=== PATIENT | female | born 1965 | race Caucasian/White ===

== ENCOUNTER 2017-08-08 14:15 | Observation (INO) | payer OTHER ==
[~2017-08-08] VITALS: Ht 167.6 cm; Wt 70.0 kg
[2017-08-08 14:25] VITALS: BP 123/72; PULSE 72; RESP 18; TEMP 98.2; O2SAT 100
[2017-08-08 14:37] VITALS: RESP 18; O2SAT 99
[2017-08-08] MEDS ORDERED: ASPIRIN 81 MG CHEW TAB PO ONE (14:45)
[2017-08-08] MEDS ORDERED: LIDOCAINE VISCOUS 2% SOLN 15 ML UDC PO ONE (14:45)
[2017-08-08] MEDS ORDERED: ALUMINUM/MAGNESIUM/SIMETH 30 ML CUP PO ONE (14:45)
--- NOTE | 2017-08-08 14:51 | PD ---
HPI Chief Complaint: Chest Pain Time Seen by Provider: 14:31 Travel History International Travel<30 days: No Contact w/Intl Traveler<30days: No Traveled to known affect area: No History of Present Illness HPI Patient comes emergency department complaining of pressure-like pain in her epigastric and substernally. Reports pain began shortly after leaving her daughter's house where she had lunch. Reports that they were on the way take her son back to the [employer] when the pain began suddenly. Patient reports pain has been constant, but has improved some since laying down. Patient reports history of abdominal issues and takes [id number] medications for this. Denies any other medical problems. Denies any history of cardiac disease or ever having a stress test. Patient reports she has had a cholecystectomy. Patient reports associated shortness of breath and tingling in her right arm. Denies anything making symptoms worse. Denies any fevers, loss change in bowel or bladder, headache, neck pain, or back pain. Severity mild. PFSH Past Medical History Anxiety: Yes GERD: Yes Influenza Vaccination: No ?: Not Past Surgical History Abdominal Surgery: Yes (Gall bladder removed july 2016) Social History Alcohol Use: Yes (on occasion) Tobacco Use: No Substance Use: No Allergies-Medications (Allergen,Severity, Reaction): Coded Allergies: No Known Allergies (Unverified , 08/08/17) Review of Systems Except as stated in HPI: all other systems reviewed are Neg Physical Exam Narrative GENERAL: Well-developed, well nourished, in mild acute distress, and non-ill appearing. SKIN: Focused skin assessment warm and dry. HEAD: Atraumatic. Normocephalic. EYES: Pupils equal and round. EOMI. No scleral icterus. No injection or drainage. ENT: No nasal bleeding or discharge. Mucous membranes pink and moist. NECK: Trachea midline. No JVD. Supple. No nuclear rigidity. CARDIOVASCULAR: Regular rate and rhythm. No murmur appreciated. RESPIRATORY: No accessory muscle use. No respiratory distress. Clear to auscultation. Breath sounds equal bilaterally. GASTROINTESTINAL: Abdomen soft, nondistended, and no guarding. Hepatic and splenic margins not palpable. Normal bowel sounds x4. No pulsatile mass. Epigastric tenderness. MUSCULOSKELETAL: No obvious deformities. No clubbing. No cyanosis. No edema. Full range of motion. NEUROLOGICAL: Awake and alert. No obvious cranial nerve deficits. Motor grossly within normal limits. Normal speech. PSYCHIATRIC: Appropriate mood and affect; insight and judgment normal. Data Data Last Documented VS Vital Signs Date Time Temp Pulse Resp B/P (MAP) Pulse Ox O2 Delivery O2 Flow Rate FiO2 08/08/17 15:57 72 18 120/73 (89) 73 Room Air 08/08/17 14:37 2.00 08/08/17 14:25 98.2 Orders Orders Electrocardiogram (08/08/17 14:31) Complete Blood Count With Diff (08/08/17 14:31) Ckmb (Isoenzyme) Profile (08/08/17 14:31) Troponin I (08/08/17 14:31) Chest, Single Ap (08/08/17 14:31) Iv Access Insert/Monitor (08/08/17 14:31) Ecg Monitoring (08/08/17 14:31) Oxygen Administration (08/08/17 14:31) Oximetry (08/08/17 14:31) Aspirin Chew (Aspirin Chew) (08/08/17 14:45) Al-Mag Hy-Si 40-40-4 Mg/Ml Liq (Mag-Al P (08/08/17 14:45) Lidocaine 2% Viscous (Xylocaine 2% Visco (08/08/17 14:45) Prothrombin Time / Inr (Pt) (08/08/17 15:07) Act Partial Throm Time (Ptt) (08/08/17 15:07) Comprehensive Metabolic Panel (08/08/17 14:38) Magnesium (Mg) (08/08/17 14:38) CKMB (08/08/17 14:38) CKMB% (08/08/17 14:38) Lipase (08/08/17 14:38) Ct Abd/Pel W Iv Contrast(Rout) (08/08/17 ) Iohexol 350 Inj (Omnipaque 350 Inj) (08/08/17 17:49) Admit Order (Ed Use Only) (08/08/17 18:07) Activity Bed Rest With Brp (08/08/17 18:07) Vital Signs (Adult) Q4H (08/08/17 18:07) Cardiac Rhythm .As Directed (08/08/17 18:07) Notify Dr: Other .PRN (08/08/17 18:07) Notify Parameters (08/08/17 18:07) Resp Oxygen Nasal Cannula (08/08/17 ) Ckmb (Isoenzyme) Profile (08/08/17 18:07) Ckmb (Isoenzyme) Profile (08/08/17 21:07) Troponin I (08/08/17 18:07) Troponin I (08/08/17 21:07) Electrocardiogram (08/08/17 18:07) Electrocardiogram (08/08/17 21:07) ^ Obtain (08/08/17 18:07) Sodium Chloride 0.9% Flush (Ns Flush) (08/08/17 18:15) Sodium Chloride 0.9% Flush (Ns Flush) (08/08/17 21:00) Supervisor Color Making / Telemetry EVANGELINA.Q8H (08/08/17 18:07) Labs Laboratory Tests Test 08/08/17 14:38 08/08/17 15:15 White Blood Count 4.9 TH/MM3 Red Blood Count 4.35 MIL/MM3 Hemoglobin 13.8 GM/DL Hematocrit 39.6 % Mean Corpuscular Volume 91.0 FL Mean Corpuscular Hemoglobin 31.7 PG Mean Corpuscular Hemoglobin Concent 34.8 % Red Cell Distribution Width 12.8 % Platelet Count 210 TH/MM3 Mean Platelet Volume 9.6 FL Neutrophils (%) (Auto) 42.2 % Lymphocytes (%) (Auto) 46.2 % Monocytes (%) (Auto) 9.7 % Eosinophils (%) (Auto) 1.4 % Basophils (%) (Auto) 0.5 % Neutrophils # (Auto) 2.1 TH/MM3 Lymphocytes # (Auto) 2.3 TH/MM3 Monocytes # (Auto) 0.5 TH/MM3 Eosinophils # (Auto) 0.1 TH/MM3 Basophils # (Auto) 0.0 TH/MM3 CBC Comment DIFF FINAL Differential Comment Blood Urea Nitrogen 14 MG/DL Creatinine 0.83 MG/DL Random Glucose 61 MG/DL Total Protein 7.5 GM/DL Albumin 3.6 GM/DL Calcium Level 8.5 MG/DL Magnesium Level 2.4 MG/DL Alkaline Phosphatase 50 U/L Aspartate Amino Transf (AST/SGOT) 138 U/L Alanine Aminotransferase (ALT/SGPT) 73 U/L Total Bilirubin 0.2 MG/DL Sodium Level 142 MEQ/L Potassium Level 4.1 MEQ/L Chloride Level 109 MEQ/L Carbon Dioxide Level 25.8 MEQ/L Anion Gap 7 MEQ/L Estimat Glomerular Filtration Rate 73 ML/MIN Total Creatine Kinase 331 U/L Creatine Kinase MB 8.2 NG/ML Creatine Kinase MB % 2.5 % Troponin I LESS THAN 0.02 NG/ML Lipase 124 U/L Prothrombin Time 10.2 SEC Prothromb Time International Ratio 1.0 RATIO Activated Partial Thromboplast Time 24.0 SEC MDM Medical Decision Making Medical Screen Exam Complete: Yes Emergency Medical Condition: Yes Interpretation(s) EKG reviewed by Dr. Wharton shows sinus rhythm with first-degree AV block with a ventricular rate of 73. No STEMI. Last Impressions Chest X-Ray 08/08/17 1431 Signed Impressions: Service Date/Time: Tuesday, August 08, 2017 15:10 - CONCLUSION: No acute disease. Lukasz Rodriguez MD Abdomen/Pelvis CT 08/08/17 0000 Signed Impressions: Service Date/Time: Tuesday, August 08, 2017 17:38 - CONCLUSION: No acute disease. Lukasz Rodriguez MD Differential Diagnosis Acute coronary syndrome, atypical chest pain, gastritis, pancreatitis, metabolic disturbance, pneumonia Narrative Course Patient was seen and examined. Initial laboratory radiological studies were ordered. Patient was given aspirin as well as a GI cocktail. IV was established patient was placed on continuous cardiac monitoring. Discussed patient with Dr. Wharton, who saw and evaluated the patient and recommends admission to the chest pain center if CT is negative. Discussed all findings and plan of care patient, who is agreeable for admission. All questions were answered. Patient remained stable throughout ED course. Diagnosis Primary Impression: Atypical chest pain Admitting Information Admitting Physician Requests: Observation Condition: Stable Hardy Esposito Aug 08, 2017 14:51
[2017-08-08 15:12] LABS: AUTOMATED NEUTROPHIL # 2.1 TH/MM3 (1.8-7.7); BASOPHIL % 0.5 % (0.0-2.0); EOSINOPHIL # 0.1 TH/MM3 (0-0.4); EOSINOPHIL % 1.4 % (0.0-4.0); HEMATOCRIT 39.6 % (35.0-46.0); HEMOGLOBIN 13.8 GM/DL (11.6-15.3); LYMPH % 46.2 % (9.0-44.0); LYMPHOCYTE # 2.3 TH/MM3 (1.0-4.8); MEAN CORPUSCULAR HEMOGLOBIN 31.7 PG (27.0-34.0); MEAN CORPUSCULAR HGB CONC 34.8 % (32.0-36.0); MEAN PLATELET VOLUME 9.6 FL (7.0-11.0); MONO % 9.7 % (0.0-8.0); MONOCYTE # 0.5 TH/MM3 (0-0.9); NEUT % 42.2 % (16.0-70.0); PLATELET COUNT 210 TH/MM3 (150-450); RED BLOOD COUNT 4.35 MIL/MM3 (4.00-5.30); RED CELL DISTRIBUTION WIDTH 12.8 % (11.6-17.2); WHITE BLOOD COUNT 4.9 TH/MM3 (4.0-11.0)
[2017-08-08 15:32] LABS: ALBUMIN 3.6 GM/DL (3.4-5.0); ALT (GPT) 73 U/L (10-53); AST (GOT) 138 U/L (15-37); BICARBONATE 25.8 MEQ/L (21.0-32.0); BLOOD UREA NITROGEN 14 MG/DL (7-18); CALCIUM 8.5 MG/DL (8.5-10.1); CHLORIDE 109 MEQ/L (98-107); CREATININE 0.83 MG/DL (0.50-1.00); GLOMERULAR FILTRATION RATE 73 ML/MIN (>89); GLUCOSE,RANDOM 61 MG/DL (74-106); MAGNESIUM 2.4 MG/DL (1.5-2.5); SODIUM (NA) 142 MEQ/L (136-145)
[2017-08-08 15:36] LABS: ALKALINE PHOSPHATASE 50 U/L (45-117); TOTAL BILIRUBIN ADULT 0.2 MG/DL (0.2-1.0); TOTAL PROTEIN 7.5 GM/DL (6.4-8.2); TROPONIN I LESS THAN 0.02 NG/ML (0.02-0.05)
--- NOTE | 2017-08-08 15:51 | RADRPT ---
EXAM DATE/TIME: 08/08/2017 15:10 [facility] COMPARISON: No previous studies available for comparison. INDICATIONS : Chest Presssure MEDICAL HISTORY : None. SURGICAL HISTORY : None. ENCOUNTER: Initial ACUITY: 1 day PAIN SCORE: 0/10 LOCATION: chest FINDINGS: A single view of the chest demonstrates the lungs to be symmetrically aerated without evidence of mas s, infiltrate or effusion. The cardiomediastinal contours are unremarkable. Osseous structures are intact. CONCLUSION: No acute disease. Lukasz Rodriguez MD on August 08, 2017 at 15:49 Board Certified Radiologist. This report was verified electronically.
[2017-08-08 15:57] VITALS: BP 120/73; PULSE 72; RESP 18; O2SAT 73
[2017-08-08 16:03] LABS: PROTHROMBIN TIME - PATIENT 10.2 SEC (9.8-11.6)
[2017-08-08] MEDS ORDERED: IOHEXOL 350 MG/ML 10 ML VIAL (for RAD DIAG) IVCONTRAST ONE (17:49)
--- NOTE | 2017-08-08 18:05 | RADRPT ---
EXAM DATE/TIME: 08/08/2017 17:38 [facility] COMPARISON: No previous studies available for comparison. INDICATIONS : Epigastric pain IV CONTRAST: 95 cc Omnipaque 350 (iohexol) IV ORAL CONTRAST: No oral contrast ingested. RADIATION DOSE: 8.53 CTDIvol (mGy) MEDICAL HISTORY : None SURGICAL HISTORY : Cholecystectomy. ENCOUNTER: Initial ACUITY: 2 days PAIN SCALE: 7/10 LOCATION: upper quadrant TECHNIQUE: Volumetric scanning of the abdomen and pelvis was performed. Using automated exposure control and ad justment of the mA and/or kV according to patient size, radiation dose was kept as low as reasonably achievable to obtain optimal diagnostic quality images. DICOM format image data is available electro nically for review and comparison. FINDINGS: LOWER LUNGS: The visualized lower lungs are clear. LIVER: Homogeneous density without lesion. There is no dilation of the biliary tree. Post cholecystectomy c lips are noted. SPLEEN: Normal size without lesion. PANCREAS: Within normal limits. KIDNEYS: Normal in size and shape. There is no mass, stone or hydronephrosis. ADRENAL GLANDS: Within normal limits. VASCULAR: There is no aortic aneurysm. BOWEL/MESENTERY: The stomach, small bowel, and colon demonstrate no acute abnormality. There is no free intraperitone al air or fluid. ABDOMINAL WALL: Within normal limits. RETROPERITONEUM: There is no lymphadenopathy. BLADDER: No wall thickening or mass. REPRODUCTIVE: Within normal limits. INGUINAL: There is no lymphadenopathy or hernia. MUSCULOSKELETAL: Within normal limits for patient age. CONCLUSION: No acute disease. Lukasz Rodriguez MD on August 08, 2017 at 18:01 Board Certified Radiologist. This report was verified electronically.
[2017-08-08] MEDS ORDERED: SODIUM CHLORIDE 0.9% FLUSH 10 ML FLUSH IV FLUSH PRN (18:15)
[2017-08-08 19:05] LABS: TROPONIN I LESS THAN 0.02 NG/ML (0.02-0.05)
[2017-08-08 19:29] VITALS: O2SAT 98
[2017-08-08 20:00] VITALS: BP 116/71; PULSE 62; RESP 18; TEMP 97.7; O2SAT 98
[2017-08-08] MEDS: SODIUM CHLORIDE 0.9% FLUSH 10 ML FLUSH IV FLUSH SCH (21:00)
[2017-08-08 22:22] LABS: TROPONIN I LESS THAN 0.02 NG/ML (0.02-0.05)
[2017-08-08] MEDS ORDERED: ONDANSETRON HCL 4 MG/2 ML VIAL IV PUSH PRN (23:30)
[2017-08-08] MEDS ORDERED: ACETAMINOPHEN 500 MG CPLT PO PRN (23:30)
[2017-08-09] VITALS: BP 110/78; PULSE 51; RESP 18; TEMP 98.1; O2SAT 98
[2017-08-09 00:56] VITALS: PULSE 56
[2017-08-09 04:00] VITALS: BP 108/63; PULSE 61; RESP 18; TEMP 98; O2SAT 98
[2017-08-09 04:16] VITALS: PULSE 56
[2017-08-09 08:26] VITALS: BP 115/68; PULSE 60; RESP 16; TEMP 97.9; O2SAT 98
[2017-08-09] MEDS ORDERED: ALUMINUM/MAGNESIUM/SIMETH 30 ML CUP PO ONE (08:30)
--- NOTE | 2017-08-09 09:09 | HHI.HP ---
HPI Primary Care Physician Unknown Chief Complaint Abdominal pain History of Present Illness This is a 51-year-old female with history of GERD presents to ED complaining of abdominal pain. Patient states "I think everyone is barking down the wrong tree." States he began having a pressure and points to the epigastric region. 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 Was about an hour to 2 hours after having a branch which included scrambled eggs, clark, sausage, cinnamon rolls, and mimosas. The discomfort was very intense and lasted about 20 minutes. She was little nauseous. She was burping and belching. She has had this quite a bit in the past but this is more intense than usual. States she has placed herself on Prilosec OTC and has been taking this for about a week and a half. Denies other type of discomforts. Denies chest pain. Denies fevers or chills. Denies any recent coughing or illnesses. She is found nothing to worsen or improve the symptoms when she had it. Review of Systems General: Patient denies fevers, chills recent, and recent travel HEENT: Patient denies headache, sore throat, difficulty swallowing. Cardiovascular: Complains of an epigastric discomfort as mentioned above. Denies sensation of heart beating rapidly or irregularly. No syncope. Denies diaphoresis. Respiratory: Denies shortness of breath or inspirational chest discomfort. Denies coughing wheezing or hemoptysis. GI: She was nauseous. Complains of an epigastric discomfort. She was burping and belching. Patient denies vomiting, constipation, diarrhea, and bloody stools. Musculoskeletal: Patient denies joint pain or edema. Denies calf pain or edema. Neurovascular: Patient denies numbness, tingling, weakness in extremities. Denies headache. Endocrine: Denies polyuria and polydipsia. Hematologic: Denies easy bruising. Skin: Denies rash or itching. Past Family Social History Allergies: Coded Allergies: No Known Allergies (Unverified , 08/08/17) Past Medical History GERD. Israel's. Denies hypertension, hyperlipidemia, diabetes, and CAD. Past Surgical History Cholecystectomy July 2016. Active Ordered Medications Current Medications Medications (Trade) Dose Ordered Sig/Danay Route Start Time Stop Time Status Last Admin (NS Flush) 2 ml UNSCH PRN IV FLUSH 4/1/18 18:15 (NS Flush) 2 ml BID IV FLUSH 08/08/17 21:00 08/08/17 21:00 (Tylenol) 500 mg Q4H PRN PO 08/08/17 23:30 (Zofran Inj) 4 mg Q6H PRN IV PUSH 08/08/17 23:30 Family History Denies family history of CAD. Social History Non-smoker. Occasional alcohol. Denies illicit drug use. Physical Exam Vital Signs Vital Signs Date Time Temp Pulse Resp B/P (MAP) Pulse Ox O2 Delivery O2 Flow Rate FiO2 08/09/17 08:26 97.9 60 16 115/68 (84) 98 08/09/17 04:16 56 08/09/17 04:00 98.0 61 18 108/63 (78) 98 08/09/17 00:56 56 08/09/17 00:00 98.1 51 18 110/78 (89) 98 08/08/17 20:00 97.7 62 18 116/71 (86) 98 08/08/17 19:29 98 08/08/17 15:57 72 18 120/73 (89) 73 Room Air 08/08/17 14:37 99 Nasal Cannula 2.00 08/08/17 14:37 18 99 Room Air 08/08/17 14:33 71 18 99 Room Air 08/08/17 14:25 98.2 72 18 123/72 (89) 100 Nasal Cannula 2.00 Physical Exam GENERAL: This is a well-nourished, well-developed patient, in no apparent distress. Patient speaks in clear complete sentences. Patient is pleasant. HEENT: Head is atraumatic and normocephalic. Neck is supple without lymphadenopathy and trachea is midline. No JVD or carotid bruits. CARDIOVASCULAR: Regular rate and rhythm without murmurs, gallops, or rubs. RESPIRATORY: Clear to auscultation. Breath sounds equal bilaterally. No wheezes , rales, or rhonchi. Chest wall is nontender. No use of accessory muscles. GASTROINTESTINAL: There is some epigastric tenderness. Abdomen is nondistended. Abdomen soft. No obvious pulsatile mass or bruit. No CVA tenderness. Strong femoral pulses bilaterally. Normal bowel sounds in all quadrants. MUSCULOSKELETAL: Patient is moving upper and lower extremities freely. No calf tenderness or edema, no Homans sign. Strong pulses in upper and lower extremities. NEUROLOGICAL: Patient is alert and oriented. Cranial nerves 2-12 are grossly intact. No focal deficits and speech is clear. SKIN: No rash and turgor is normal. Laboratory Laboratory Tests Test 08/08/17 14:38 08/08/17 15:15 08/08/17 18:20 08/08/17 21:30 White Blood Count 4.9 Red Blood Count 4.35 Hemoglobin 13.8 Hematocrit 39.6 Mean Corpuscular Volume 91.0 Mean Corpuscular Hemoglobin 31.7 Mean Corpuscular Hemoglobin Concent 34.8 Red Cell Distribution Width 12.8 Platelet Count 210 Mean Platelet Volume 9.6 Neutrophils (%) (Auto) 42.2 Lymphocytes (%) (Auto) 46.2 Monocytes (%) (Auto) 9.7 Eosinophils (%) (Auto) 1.4 Basophils (%) (Auto) 0.5 Neutrophils # (Auto) 2.1 Lymphocytes # (Auto) 2.3 Monocytes # (Auto) 0.5 Eosinophils # (Auto) 0.1 Basophils # (Auto) 0.0 CBC Comment DIFF FINAL Differential Comment Blood Urea Nitrogen 14 Creatinine 0.83 Random Glucose 61 Total Protein 7.5 Albumin 3.6 Calcium Level 8.5 Magnesium Level 2.4 Alkaline Phosphatase 50 Aspartate Amino Transf (AST/SGOT) 138 Alanine Aminotransferase (ALT/SGPT) 73 Total Bilirubin 0.2 Sodium Level 142 Potassium Level 4.1 Chloride Level 109 Carbon Dioxide Level 25.8 Anion Gap 7 Estimat Glomerular Filtration Rate 73 Total Creatine Kinase 331 70 67 Creatine Kinase MB 8.2 Creatine Kinase MB % 2.5 Troponin I LESS THAN 0.02 LESS THAN 0.02 LESS THAN 0.02 Lipase 124 Prothrombin Time 10.2 Prothromb Time International Ratio 1.0 Activated Partial Thromboplast Time 24.0 Result Diagram: 08/08/17 1438 08/08/17 1438 Imaging Last 48 hours Impressions Chest X-Ray 08/08/17 1431 Signed Impressions: Service Date/Time: Tuesday, August 08, 2017 15:10 - CONCLUSION: No acute disease. Lukasz Rodriguez MD Abdomen/Pelvis CT 08/08/17 0000 Signed Impressions: Service Date/Time: Tuesday, August 08, 2017 17:38 - CONCLUSION: No acute disease. Lukasz Rodriguez MD Course EKGs are sinus rhythm without significant ST segment depressions or elevations. Caprini VTE Risk Assessment Caprini VTE Risk Assessment: No/Low Risk (score <= 1) Caprini Risk Assessment Model Point Value = 1 Point Value = 2 Point Value = 3 Point Value = 5 Age 41-60 Minor surgery BMI > 25 kg/m2 Swollen legs Varicose veins or History of unexplained or recurrent spontaneous Oral contraceptives or hormone replacement Sepsis (< 1 month) Serious lung disease, including pneumonia (< 1 month) Abnormal pulmonary function Acute myocardial infarction Congestive heart failure (< 1 month) History of inflammatory bowel disease Medical patient at bed rest Age 61-74 Arthroscopic surgery Major open surgery (> 45 min) Laparoscopic surgery (> 45 min) Malignancy Confined to bed (> 72 hours) Immobilizing plaster cast Central venous access Age >= 75 History of VTE Family history of VTE Factor V Leiden Prothrombin [id number] Lupus anticoagulant Anticardiolipin antibodies Elevated serum homocysteine Heparin-induced thrombocytopenia Other congenital or acquired thrombophilia Stroke (< 1 month) Elective arthroplasty Hip, pelvis, or leg fracture Acute spinal cord injury (< 1 month) Prophylaxis Regimen Total Risk Factor Score Risk Level Prophylaxis Regimen 0-1 Low Early ambulation 2 Moderate Order ONE of the following: *Sequential Compression Device (SCD) *Heparin 5000 units SQ BID 3-4 Higher Order ONE of the following medications: *Heparin 5000 units SQ TID *Enoxaparin/Lovenox 40 mg SQ daily (WT < 150 kg, CrCl > 30 mL/min) *Enoxaparin/Lovenox 30 mg SQ daily (WT < 150 kg, CrCl > 10-29 mL/min) *Enoxaparin/Lovenox 30 mg SQ BID (WT < 150 kg, CrCl > 30 mL/min) AND/OR *Sequential Compression Device (SCD) 5 or more Highest Order ONE of the following medications: *Heparin 5000 units SQ TID (Preferred with Epidurals) *Enoxaparin/Lovenox 40 mg SQ daily (WT < 150 kg, CrCl > 30 mL/min) *Enoxaparin/Lovenox 30 mg SQ daily (WT < 150 kg, CrCl > 10-29 mL/min) *Enoxaparin/Lovenox 30 mg SQ BID (WT < 150 kg, CrCl > 30 mL/min) AND *Sequential Compression Device (SCD) Assessment and Plan Assessment and Plan * Abdominal pain: Patient is denying chest discomfort. She had serial cardiac enzymes and EKGs for ruling out purposes. She is complaining of an epigastric discomfort and really does not want to have a stress test. She would prefer to be discharged home. Dr. Vogel is about to evaluate the patient and further plan will be pending his evaluation. Patient will follow-up with PCP and GI. Return to ED for interval issues. * GERD: Continue her Prilosec. Follow-up with PCP and GI. Patient is stable at this time. She is agreeable to this plan. Armand Spann Aug 09, 2017 09:09
[2017-08-09] MEDS: SODIUM CHLORIDE 0.9% FLUSH 10 ML FLUSH IV FLUSH SCH (09:18)
--- NOTE | 2017-08-09 10:15 | EKG ---
Date Performed: 08/08/2017 Time Performed: 22:20:13 PTAGE: 51 years EKG: SINUS BRADYCARDIA WITH FIRST DEGREE AV BLOCK LOW QRS VOLTAGE IN PRECORDIAL LEADS ABNORMAL E CG PREVIOUS TRACING : 08/08/2017 18.48 Since previous tracing, no significant change noted DOCTOR: Alexis Vogel Interpretating Date/Time 08/09/2017 10:13:54
--- NOTE | 2017-08-09 10:15 | EKG ---
Date Performed: 08/08/2017 Time Performed: 18:48:59 PTAGE: 51 years EKG: SINUS BRADYCARDIA WITH FIRST DEGREE AV BLOCK ABNORMAL ECG PREVIOUS TRACING : 08/08/2017 14.22 Since previous tracing, no significant change noted DOCTOR: Alexis Vogel Interpretating Date/Time 08/09/2017 10:14:31
--- NOTE | 2017-08-09 10:17 | EKG ---
Date Performed: 08/08/2017 Time Performed: 14:22:07 PTAGE: 51 years EKG: Sinus rhythm WITH FIRST DEGREE AV BLOCK POSSIBLE LEFT ATRIAL ENLARGEMENT ABNORMAL ECG NO PREVIOUS TRACING DOCTOR: Alexis Vogel Interpretating Date/Time 08/09/2017 10:15:55
--- NOTE | 2017-08-09 11:07 | HHI.DCPOC ---
Discharge Care Plan Diagnosis: (1) Atypical chest pain Goals to Promote Your Health * To prevent worsening of your condition and complications * To maintain your health at the optimal level Directions to Meet Your Goals Take your medications as prescribed Follow your dietary instruction Follow activity as directed Keep your appointments as scheduled Take your immunizations and boosters as scheduled If your symptoms worsen call your PCP, if no PCP go to Urgent Care Center or Emergency Room Smoking is Dangerous to Your Health. Avoid second hand smoke Call the 24-hour hour crisis hotline for domestic abuse at Armand Spann Aug 09, 2017 11:07
[2017-08-09 11:24] VITALS: BP 99/61; PULSE 68; RESP 16; TEMP 98.7; O2SAT 98
--- NOTE | 2017-08-10 17:27 | TR ---
Date Performed: 08/09/2017 Time Performed: 10:32:04 DOCTOR: Dora Coronado DRUG LIST: CLINICAL HISTORY: REASON FOR TEST: REASON FOR ENDING: OBSERVATION: CONCLUSION: ABELARDO PROTOCOL. NO CP. TEST STOPPED AFTER EXCEEDING GOAL HR SECONDARY TO SOB AND LE G FATIGUE.Maximum YJ=610 % Target HR Achieved=91.0% Total Exercise Time=9:00 COMMENTS:
== END 2017-08-09 12:20 | disposition home or self-care (01) ==
LOC: NEPE 14:15 → NEDA 18:10 → NEPHCDU 18:52
DX: R07.89 Other chest pain (principal); R10.13 Epigastric pain; R20.2 Paresthesia of skin; R06.02 Shortness of breath; F41.9 Anxiety disorder, unspecified; K21.9 Gastro-esophageal reflux disease without esophagitis; I44.0 Atrioventricular block, first degree; R11.0 Nausea; R14.2 Eructation; E06.3 Autoimmune thyroiditis; R00.1 Bradycardia, unspecified
CPT/HCPCS: 71045; 74177; 80053; 82550; 82552; 82948; 83690; 83735; 84484; 85025; 85610; 85730; 93005; 93017; 99285; G0378; Q9967